=== PATIENT | female | born 1980 | race Caucasian/White ===

== ENCOUNTER → 2017-03-21 | Outpatient (CLI) | payer SELFPAY | LOC: RAD 10:36 | PROVIDERS: ATTEND Family Medicine | DX: M25.561 Pain in right knee (principal) ==

== ENCOUNTER 2018-07-17 13:00 | Outpatient (CLI) | payer MEDICARE | END 2018-07-17 13:45 | disposition home or self-care (01) | LOC: SLEEP 13:00 | PROVIDERS: ATTEND Surgery | DX: G47.10 Hypersomnia, unspecified (principal); F39 Unspecified mood [affective] disorder; E66.9 Obesity, unspecified; Z98.84 Bariatric surgery status ==

== ENCOUNTER 2020-12-24 11:32 | Emergency (ER) | payer MEDICARE ==
[~2020-12-24] VITALS: Ht 177.8 cm; Wt 102.1 kg
[2020-12-24 11:45] VITALS: BP 124/90
[2020-12-24] MEDS ORDERED: morphine INJ 10 MG/ML 1ML (SYR OR VIAL) IM STA (12:28)
[2020-12-24] MEDS ORDERED: ONDANSETRON 4 MG (ZOFRAN) ORAL DISSOLVE TAB PO STA (12:28)
--- NOTE | 2020-12-24 12:31 | Diagnostic Imaging Report ---
INDICATION: Wrist pain after a fall. 3 views were obtained FINDINGS: The alignment is normal. There is no fracture dislocation. Soft tissues are unremarkable. IMPRESSION: No acute fracture or dislocation. Dictated by: Dictated on workstation # [id number]
--- NOTE | 2020-12-24 12:32 | Diagnostic Imaging Report ---
INDICATION: Pain after a fall. 3 views were obtained. FINDINGS: The alignment is normal. There is no fracture or dislocation. Soft tissues are unremarkable. IMPRESSION: No acute fracture or dislocation. Dictated by: Dictated on workstation # [id number]
--- NOTE | 2020-12-24 12:33 | Diagnostic Imaging Report ---
INDICATION: Elbow pain. 3 views were obtained. FINDINGS: The alignment is normal. There appears to be a small joint effusion although there is no overt fracture or dislocation. Soft tissues are unremarkable. IMPRESSION: No definitive evidence of fracture or dislocation although there is a questionable joint effusion. Recommend clinical correlation and follow-up as pain dictates. Dictated by: Dictated on workstation # [id number]
--- NOTE | 2020-12-24 12:34 | Diagnostic Imaging Report ---
INDICATION: Knee pain after a fall. 3 views were obtained. FINDINGS: The alignment is normal. There is no fracture or dislocation. Soft tissues are unremarkable. Mild degenerative changes. IMPRESSION: Mild degenerative changes, otherwise unremarkable. Dictated by: Dictated on workstation # [id number]
--- NOTE | 2020-12-24 13:00 | ED General ---
General Chief Complaint: Trauma-Non Activation Stated Complaint: RIGHT HAND/RIGHT KNEE/HEAD INJ Nursing Triage Note: see triage note Nursing Sepsis Screen: No Definite Risk Source of Information: Patient History of Present Illness Date Seen by Provider: Dec 24, 2020 Time Seen by Provider: 11:15 Initial Comments Patient is a 40-year-old female with history of rheumatoid arthritis who presents from accidental fall from a treadmill. Patient slipped off the treadmill at speed fell backwards hitting her head with loss of consciousness for unknown duration who presents with headache, right arm, right wrist and right knee pain. Patient is ambulatory and has full use of her arm and wrist. There is no obvious displaced fracture. Patient believes she hit the front side of her head. There is no bruising swelling. Patient is not on anticoagulation or antiplatelet therapy. Headache is reported as moderate. Patient does report mild nausea without vomiting. She recalls the incident. Denies chest pain shortness of breath abdominal pain, hip pain or additional extremity pain. Accident occurred just prior to ED arrival. Timing/Duration: 1 Hour Severity: Moderate Modifying Factors: improves with Medication, improves with Other Associated Systoms: Other Allergies and Home Medications Allergies Coded Allergies: codeine (Verified Allergy, Unknown, 12/24/20) Patient Home Medication List Home Medication List Reviewed: Yes Review of Systems Review of Systems Constitutional: see HPI EENTM: see HPI Respiratory: see HPI Cardiovascular: see HPI Gastrointestinal: see HPI Genitourinary: see HPI Musculoskeletal: see HPI Skin: see HPI Psychiatric/Neurological: See HPI Hematologic/Lymphatic: See HPI All Other Systems Reviewed Negative Unless Noted: Yes Past Dvqilgb-Rxhlrs-Ruysrj Hx Past Med/Social Hx: Reviewed Nursing Past Med/Soc Hx Patient Social History Alcohol Use: Denies Use Smoking Status: Never a Smoker 2nd Hand Smoke Exposure: No Recent Infectious Disease Expo: No Recent Hopitalizations: No Seasonal Allergies Seasonal Allergies: No Past Medical History Surgeries: Yes Appendectomy, Eye Surgery, Gallbladder Respiratory: No Cardiac: No Neurological: No Genitourinary: No Gastrointestinal: No Musculoskeletal: Yes Rheumatoid Arthritis Endocrine: No HEENT: Yes Cataract, Glaucoma Cancer: No Psychosocial: No Integumentary: No Physical Exam Vital Signs Vital Signs - First Documented 12/24/20 11:45 Temp 36.6 Pulse 110 Resp 16 B/P (MAP) 124/90 (101) Pulse Ox 96 O2 Delivery Room Air Capillary Refill : Less Than 3 Seconds Height, Weight, BMI Height: '" Weight: lbs. oz. kg; 32.00 BMI Method: General Appearance: WD/WN Eyes: Bilateral Eye Normal Inspection, Bilateral Eye PERRL, Bilateral Eye EOMI HEENT: Normal ENT Inspection, Pharynx Normal Neck: Full Range of Motion, Non Tender, Supple Respiratory: Lungs Clear Cardiovascular: Regular Rate, Rhythm (Swelling of wrist, hand, no deformity. Abrasion over dorsum of hand. Range of motion intact. Right elbow swelling, no deformity or restriction range of motion. Right knee, no deformity swelling or bruising. 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 Norm as Tested Skin: Normal Color, Warm/Dry Progress/Results/Core Measures Suspected Sepsis Recent Fever Within 48 Hours: No Infection Criteria Present: None New/Unexplained Altered Menta: No Sepsis Screen: No Definite Risk SIRS Temperature: Pulse: 110 Respiratory Rate: 16 Blood Pressure 124 /90 Mean: 101 Results/Orders My Orders Orders - CEDRIC GARCIA DO Wrist 3 View Right (12/24/20 11:52) Hand 3 View Right (12/24/20 11:52) Elbow 3 View Right (12/24/20 11:52) Knee 3 View Right (12/24/20 11:52) Ondansetron Oral Dissolve Tab (Zofran (12/24/20 12:28) Morphine Injection (Morphine Injection (12/24/20 12:28) Nursing Communication (Order) (12/24/20 12:51) Vital Signs/I&O 12/24/20 11:45 Temp 36.6 Pulse 110 Resp 16 B/P (MAP) 124/90 (101) Pulse Ox 96 O2 Delivery Room Air Capillary Refill : Less Than 3 Seconds Blood Pressure Mean: 101 Departure Communication (Admissions) Patient with concussion with loss of consciousness. GCS 15 in the emergency department. Reports moderate headache with nausea. CT imaging indicated and declined by patient. I explained to the patient I cannot exclude a more serious head injury. Risk versus benefit versus alternatives discussed in detail. Patient verbalizes understanding and prefers supportive care with watchful waiting and agrees to return to the emergency department should her symptoms wo rsen. Typical closed head injury instructions provided. Patient placed in wrist splint and sling for comfort. All questions answered prior to departure. Impression Primary Impression: Concussion with loss of consciousness Additional Impressions: Sprain of right elbow Right wrist sprain Right knee sprain Contusion of right hand Disposition: 20 Condition: Stable Departure-Patient Inst. Decision time for Depature: 12:59 Referrals: DEXTER DAMIAN MD (PCP) Primary Care Physician Patient Instructions: Elbow Sprain (DC), Wrist Sprain (DC), Acute Pain, Adult, Knee Sprain (DC), Concussion in Adults Add. Discharge Instructions: Please wear sling and splint for comfort. Apply ice to affected areas. Take ibuprofen for pain and tramadol as needed for additional relief. Return to the emergency department if new or concerning symptoms. Otherwise follow-up with your PCP if symptoms persist in 3 to 5 days. All discharge instructions reviewed with patient and/or family. Voiced understanding. Scripts Ondansetron (Ondansetron Odt) 4 Mg Tab.rapdis 4 MG PO Q6H, #10 TAB Prov: CEDRIC GARCIA DO 12/24/20 Tramadol HCl (Tramadol HCl) 50 Mg Tablet 50 MG PO Q6H PRN for PAIN for 3 Days, #10 TAB 0 Refills Prov: CEDRIC GARCIA DO 12/24/20 CEDRIC GARCIA DO Dec 24, 2020 13:00
[2020-12-24] MEDS ORDERED: ONDA4TAB11 PO (13:01)
[2020-12-24] MEDS ORDERED: TRM50T PO (13:01)
[2020-12-24] MEDS ORDERED: FAMOTIDINE 20MG/2ML IV (PEPCID) IVP ONE (14:00)
[2020-12-24 14:02] LABS: HEMATOCRIT 42 % (35-52); HEMOGLOBIN 13.7 G/DL (11.5-16.0); MEAN CORPUSCULAR HEMOGLOBIN 28 PG (25-34); MEAN CORPUSCULAR HGB CONC 33 G/DL (32-36); MEAN CORPUSCULAR VOLUME 85 FL (80-99); WHITE BLOOD COUNT 9.3 10^3/uL (4.3-11.0)
[2020-12-24 14:03] LABS: MEAN PLATELET VOLUME 9.8 FL (7.4-10.4); PLATELET COUNT 273 10^3/uL (130-400)
[2020-12-24 14:16] LABS: BASOPHILS # (AUTO) 0.1 10^3/uL (0.0-0.1); BASOPHILS % (AUTO) 1 % (0-10); BASOPHILS % (MANUAL) 1 %; EOSINOPHILS # (AUTO) 0.2 10^3/uL (0.0-0.3); EOSINOPHILS % (AUTO) 2 % (0-10); EOSINOPHILS % (MANUAL) 2 %; LYMPHOCYTES # (AUTO) 2.6 X 10^3 (1.0-4.0); LYMPHOCYTES % (AUTO) 28 % (12-44); LYMPHOCYTES % (MANUAL) 26 %; MONOCYTES # (AUTO) 0.9 X 10^3 (0.0-1.0); MONOCYTES % (AUTO) 10 % (0-12); MONOCYTES % (MANUAL) 6 %; NEUTROPHILS # (AUTO) 5.6 X 10^3 (1.8-7.8); NEUTROPHILS % (AUTO) 60 % (42-75); NEUTROPHILS % (MANUAL) 65 %
[2020-12-24 14:17] LABS: ALANINE AMINOTRANSFERASE 19 U/L (0-55); ALBUMIN 4.2 GM/DL (3.2-4.5); ALKALINE PHOSPHATASE 79 U/L (40-136); BILIRUBIN,TOTAL 0.5 MG/DL (0.1-1.0); BUN/CREATININE RATIO 13; CALCIUM 9.4 MG/DL (8.5-10.1); CARBON DIOXIDE 21 MMOL/L (21-32); CHLORIDE 104 MMOL/L (98-107); CREATININE SERUM 0.98 MG/DL (0.60-1.30); GFR ESTIMATED > 60; GLUCOSE 110 MG/DL (70-105); LIPASE 33 U/L (8-78); POTASSIUM 3.7 MMOL/L (3.6-5.0); SODIUM 136 MMOL/L (135-145); TOTAL PROTEIN 7.3 GM/DL (6.4-8.2)
[2020-12-24] MEDS ORDERED: NS 100 ML (IVPB) BAG IV ONE (14:45)
[2020-12-24] MEDS ORDERED: HOLD METFORMIN - RECEIVED CONTRAST 20 ML VIAL IV SCH (14:45)
[2020-12-24] MEDS ORDERED: IOHEXOL 350 MG/ML 100 ML (OMNIPAQUE 350) VIAL IV ONE (14:45)
--- NOTE | 2020-12-24 14:54 | Diagnostic Imaging Report ---
PROCEDURE: CT abdomen and pelvis with contrast. TECHNIQUE: Multiple contiguous axial images were obtained through the abdomen and pelvis after administration of intravenous contrast. Auto Exposure Controls were utilized during the CT exam to meet ALARA standards for radiation dose reduction. All CT scans use one or more of the following dose optimizing techniques: automated exposure control, MA and/or KvP adjustment based on patient size and exam type or iterative reconstruction. INDICATION: Fall off treadmill with right upper quadrant pain and nausea. FINDINGS: The heart size is normal. The lung bases are clear. The liver is normal in size and without focal lesions. Gallbladder is surgically absent. There is no biliary ductal dilatation. There are postsurgical changes about the stomach. Spleen is normal. The pancreas and adrenal glands are unremarkable. Kidneys are normal in appearance. Aorta is nonaneurysmal. The bowel gas pattern is nonspecific. There is no free air. There is no ascites. There are no focal inflammatory changes. Uterus is normal. Bladder is normal. Ovaries are normal. There is no pelvic mass, adenopathy or free fluid. The alignment of the spine is normal. Vertebral body heights are well maintained. There is no spondylolysis or spondylolisthesis. IMPRESSION: No acute abnormality in the abdomen or pelvis. Dictated by: Dictated on workstation # [id number]
== END 2020-12-24 13:15 | disposition home or self-care (01) ==
LOC: EDUNIT# 11:32 → ER FS 11:34
DX: S06.0X9A Concussion with loss of consciousness of unspecified duration, initial encounter (principal); S53.401A Unspecified sprain of right elbow, initial encounter; S63.501A Unspecified sprain of right wrist, initial encounter; S83.91XA Sprain of unspecified site of right knee, initial encounter; S60.221A Contusion of right hand, initial encounter; R40.2410 Glasgow coma scale score 13-15, unspecified time; Z88.5 Allergy status to narcotic agent; W17.89XA Other fall from one level to another, initial encounter; Y93.A1 Activity, exercise machines primarily for cardiorespiratory conditioning
CPT/HCPCS: 36415; 73080; 73110; 73130; 73562; 74177; 80053; 83690; 85007; 85027

== ENCOUNTER → 2021-01-18 | Outpatient (CLI) | payer MEDICARE ==
[~2021-01-18] MED LIST: ONDA4TAB11 PO; TRM50T PO
--- NOTE | 2021-01-18 10:03 | Diagnostic Imaging Report ---
Right wrist at 906h. INDICATION: Injury with pain 4 views were obtained. There is no fracture, dislocation or acute bony abnormality evident. The radiocarpal joint is fairly well maintained. The soft tissues are unremarkable. When compared to the prior exam of 12/24/2020 there does not appear to have been any significant change. If clinical concern regarding an underlying bony injury persists, MRI would be recommended for further evaluation. IMPRESSION: There is still no evidence for an acute bony abnormality. Additional considerations as above. Dictated by: Dictated on workstation # [id number]
== END ==
LOC: RAD FS 08:52
PROVIDERS: ATTEND Nurse Practitioner
DX: S60.211A Contusion of right wrist, initial encounter (principal)
CPT/HCPCS: 73110

== ENCOUNTER 2021-02-13 05:42 | Outpatient (CLI) | payer MEDICARE ==
[~2021-02-13] VITALS: Ht 180.3 cm; Wt 110.8 kg
[2021-02-13] MEDS ORDERED: TOPI25TA10 PO (13:10)
[2021-02-13] MEDS ORDERED: ONDA4TAB11 PO (13:10)
[2021-02-13] MEDS ORDERED: BUPR200T3 PO (13:10)
[2021-02-13] MEDS ORDERED: PREG75CA75 PO ×2 (13:10)
[2021-02-13] MEDS ORDERED: MECO10005 PO (13:10)
[2021-02-13] MEDS ORDERED: FLUO40CA PO (13:10)
[2021-02-13] MEDS ORDERED: MULT-1136 PO (13:10)
== END 2021-02-13 14:07 | disposition home or self-care (01) ==
LOC: PREOP 05:42
PROVIDERS: ATTEND Obstetrics & Gynecology
DX: Z01.812 Encounter for preprocedural laboratory examination (principal); N93.9 Abnormal uterine and vaginal bleeding, unspecified

== ENCOUNTER 2021-02-20 06:05 | Day surgery (SDC) | payer MEDICARE ==
[2021-02-20] VITALS (13 sets, daily range): BP systolic 108–133; BP diastolic 58–87
[~2021-02-20] VITALS: Ht 180.3 cm; Wt 110.8 kg
[~2021-02-20 06:05] MED LIST changes: +BUPR200T3 PO; +FLUO40CA PO; +MECO10005 PO; +MULT-1136 PO; +PREG75CA75 PO; +TOPI25TA10 PO
[2021-02-20] MEDS ORDERED: ceFAZolin 2 GM IV Premixed 50 ML IV ONE (06:15)
[2021-02-20 06:25] LABS: BILIRUBIN,URINE NEGATIVE (NEGATIVE); CLARITY,URINE CLOUDY; COLOR,URINE YELLOW; GLUCOSE, URINE (UA) NEGATIVE (NEGATIVE); KETONES,URINE NEGATIVE (NEGATIVE); LEUKOCYTE ESTERASE ,URINE NEGATIVE (NEGATIVE); NITRITE,URINE NEGATIVE (NEGATIVE); PH,URINE 7.5 (5-9); PROTEIN,URINE NEGATIVE (NEGATIVE)
[2021-02-20 06:33] LABS: BACTERIA,URINE NEGATIVE /HPF
[2021-02-20 06:34] LABS: AMORPHOUS SEDIMENT,UR LARGE AMOR PHOSPHATE /LPF
[2021-02-20 06:49] LABS: BASOPHILS # (AUTO) 0.1 10^3/uL (0.0-0.1); BASOPHILS % (AUTO) 1 % (0-10); EOSINOPHILS # (AUTO) 0.2 10^3/uL (0.0-0.3); EOSINOPHILS % (AUTO) 2 % (0-10); HEMATOCRIT 41 % (35-52); HEMOGLOBIN 13.6 g/dL (11.5-16.0); LYMPHOCYTES # (AUTO) 1.7 10^3/uL (1.0-4.0); LYMPHOCYTES % (AUTO) 16 % (12-44); MEAN CORPUSCULAR HEMOGLOBIN 29 pg (25-34); MEAN CORPUSCULAR HGB CONC 34 g/dL (32-36); MEAN CORPUSCULAR VOLUME 87 fL (80-99); MEAN PLATELET VOLUME 10.4 fL (9.0-12.2); MONOCYTES # (AUTO) 0.8 10^3/uL (0.0-1.0); MONOCYTES % (AUTO) 8 % (0-12); NEUTROPHILS # (AUTO) 7.3 10^3/uL (1.8-7.8); NEUTROPHILS % (AUTO) 72 % (42-75); PLATELET COUNT 312 10^3/uL (130-400); WHITE BLOOD COUNT 10.1 10^3/uL (4.3-11.0)
[2021-02-20] MEDS ORDERED: LIDOCAINE/EPI 1%-1:100,000 (XYLOCAINE) 20ML ONE (07:01)
[2021-02-20] MEDS ORDERED: LACTATED RINGERS 1,000 ML IV PRN (07:15)
[2021-02-20] MEDS ORDERED: SCOPOLAMINE 1.5 MG (TRANSDERM-SCOP) PATCH TOP ONE (07:15)
[2021-02-20] MEDS ORDERED: MIDAZOLAM 2 MG/2 ML (VERSED) VIAL IV ONE (07:15)
[2021-02-20] MEDS ORDERED: ONDANSETRON 4 MG/2 ML (SDV) Z0FRAN IV ONE (07:15)
[2021-02-20] MEDS ORDERED: FAMOTIDINE 20MG/2ML IV (PEPCID) IV ONE (07:15)
[2021-02-20] MEDS ORDERED: SCOPOLAMINE 1.5 MG (TRANSDERM-SCOP) PATCH ONE (07:18)
[2021-02-20] MEDS ORDERED: MIDAZOLAM 2 MG/2 ML (VERSED) VIAL ONE ×2 (07:18→07:28)
[2021-02-20] MEDS ORDERED: ceFAZolin 2 GM IV Premixed 50 ML ONE (07:19)
[2021-02-20] MEDS ORDERED: ONDANSETRON 4 MG/2 ML (SDV) Z0FRAN ONE ×2 (07:19→08:30)
[2021-02-20] MEDS ORDERED: FAMOTIDINE 20MG/2ML IV (PEPCID) ONE (07:20)
[2021-02-20] MEDS ORDERED: LIDOCAINE PF 2% 5 ML (XYLOCAINE) VIAL ONE (07:27)
[2021-02-20] MEDS ORDERED: SEVOFLURANE (ULTANE) 15 ML INHAL SOLN ONE ×6 (07:27→09:16)
[2021-02-20] MEDS ORDERED: proPOfol 200 MG/20 ML (DIPRIVAN) VIAL IV ONE (07:27)
[2021-02-20] MEDS ORDERED: fentaNYL INJ 100 MCG/2 ML AMP ONE ×2 (07:28→10:02)
[2021-02-20] MEDS: LACTATED RINGERS 1,000 ML IV PRN ×2 (07:36→08:37)
--- NOTE | 2021-02-20 07:54 | Progress Note-Pre Operative ---
Pre-Operative Progress Note H&P Reviewed The H&P was reviewed, patient examined and no changes noted. Date Seen by Provider: Feb 20, 2021 Time Seen by Provider: 07:45 Date H&P Reviewed: Feb 20, 2021 Time H&P Reviewed: 07:45 Pre-Operative Diagnosis: abnormal uterine bleeding INEZ WYATT DO Feb 20, 2021 07:54
[2021-02-20] MEDS ORDERED: ROCURONIUM 10 MG/ML 5 ML SYRINGE IV ONE (08:30)
[2021-02-20] MEDS ORDERED: GLYCOPYRROLATE 0.2 MG/ML (ROBINUL) 2 ML VIAL ONE (09:13)
[2021-02-20] MEDS ORDERED: NEOSTIGMINE 3 MG/3 ML VIAL ONE (09:13)
--- NOTE | 2021-02-20 09:25 | Operative Report ---
Operative Report Date of Procedure/Surgery Feb 20, 2021 Surgeon (s) INEZ WYATT DO Tractor Expert (s): NA Post-Operative Diagnosis Same, endometriosis, right ovarian endometrioma Procedure Performed RATH, bilateral salpingectomy, Right oophorectomy Description of Procedure Anesthesia Type: General Estimated blood loss (mL): minimal Specimen(s) collected/removed uterus, bilateral tubes and ovaries Description of the Procedure Patient has had tubal ligation/salpingectomy and has had abnormal uterine bleeding that was initially controlled with conservative measures but is no longer helping. Endometriosis and fibroids noted on previous exam/laparoscopy. After informed consent was obtained, patient was taken into the operating room where general anesthetic was found to be adequate. She was prepped and draped in the usual sterile fashion in the dorsal lithotomy position. A Hendrix catheter was placed. A speculum was placed in the vagina. The cervix was visualized and the anterior lip was grasped with a sharp toothed tenaculum. The uterus was sounded and depth was approximately 12 centimeters. I placed the Ernie device (12 cm) and a 3.5 cm collar was advanced over the cervix. I inserted the Ernie without difficulty, inflating the balloon and securing it around the fornix of the cervix. The collar was then secured with sutures at 12 o'clock. Attention was then turned to the patient's abdomen. The skin was injected with lidocaine with epinephrine. A supraumbilical incision was made about 8 mm in length. A Veress needle was inserted and I confirmed intraabdominal placement with a drop in pressure and the saline drop test. The opening pressure was 7 mmHg. I then insufflated the abdomen to a maximum of 15 mmHg with warmed CO2 gas. I placed an additional 8 mm trocar in the left abdomen lateral to the umbilicus approximately 15 cm. She did have some omental adhesions, but I was able to advance the camera past these without difficulty. There was not bowel associated with the adhesion. The second robotic port was placed about 12 cm lateral to the right placement. This was an 8 mm trocar. These were placed under direct visualization of the laparoscope. lidocaine with epinephrine was injected prior to placement of all trocars. When all placements were confirmed, the patient was placed in steep Trendelenburg allowing adequate visualization and the robot was brought in for docking. The docking was accomplished without difficulty. I then took over the command of the robot utilizing the vessel sealer and monopolar kati. I was able to visualize the round ligaments bilaterally and grasped them and cauterized with bipolar cautery and then cut with my kati. At this point, I had to dissect the ovary from its adhesions. As I did this dark fluid consistent with endometrioma, spilled out. This was irrigated and suctioned. I was able to then dissect the ovary off of the uterus. I removed the portion of the ovary that contained the endometrioma. The ovary appeared otherwise normal. As the tubes had already been removed, I moved my dissection to the posterior leaves of the broad ligament. I dissected the posterior leaves of the broad ligament off the uterine arteries skeletonizing them bilaterally. I then took a second clamp with the bipolar cautery and with the kati, transected the vessels away from the lateral aspect to the cervical stroma. I dissected the anterior peritoneum off the lower uterine segment. There were extensive adhesions from the previous sections and previous surgeries. I continually pushed the bladder back and I took excessively great care and I was eventually able to dissect the vesicouterine peritoneum off the lower uterine segment. This took approximately 30-45 minutes as i took great care not to injure the bladder and cautery used sparingly. I then dissected in a V fashion towards the midline between the uterosacral ligaments. This allowed me to skeletonize the uterine vessels bilaterally. The balloon on the ERNIE was insufflated. This allowed me to see the ERNIE circumferentially. I then performed a colpotomy anteriorly and then amputate with cervix away from the vaginal fornix. I then continued the colpotomy circumferentially. I made sure to include any of the endometrial implants with the specimen. Once this was performed, the library circulation assistant removed the uterus and cystic tissue, through the vagina. She then left the a lap sponge in the vagina to maintain the pneumoperitoneum. . I then began closure of the vaginal cuff. The uterus was left in the vagina to maintain pneumoperitoneum. I closed the apices of the vaginal cuff with 2-0 Vicryl V lock sutures with a colposuspension through the uterosacral ligaments. This suspended the apices of the vaginal cuff. I extended this to the midline from both sides and overlapped the V lock sutures in the midline. Excellent closure is noted and hemostasis is achieved. All the needles were removed from the patient's abdomen. Now, the robotic instruments were removed and the robot was docked back to laparoscopy. The pelvis was irrigated. There was no active bleeding noted. Bilateral ureters were seen the entire time during the surgery and were peristalsing. There was no excessive bleeding noted. The trocars were removed under direct visualization. The laparoscopic sites were visualized and found to be hemostatic. The trocar sites were injected with 0.25% Marcaine. The skin incisions were closed with 4-0 Monocryl in a subcuticular fashion and then with Dermabond. Op sites were placed over the incision sites. The instruments were removed from the vagina and I noted there were no abrasions. Sponge, lap, needle and instrument counts correct times two. Patient was a wakened and taken to recovery in a stable condition. Findings of the Procedure Large right ovarian cyst (5x6 cm) that appeared to be hemorrhagic, or an endometrioma. evidence of endometriosis on the left ovary and in the culdesac. Uterus was slightly boggy 3.5 cm 10 cm Allergies and Home Medications Allergies Coded Allergies: Penicillins (Verified Allergy, Intermediate, Rash, 02/13/21) codeine (Verified Allergy, Unknown, 12/24/20) latex (Verified Allergy, Unknown, 02/13/21) Home Medications Bupropion HCl 200 Mg Tablet.er, 200 MG PO DAILY, (Reported) Last Action: Last Taken Edited Fluoxetine HCl 40 Mg Capsule, 40 MG PO DAILY, (Reported) Last Action: Last Taken Edited Mecobalamin 1,000 Mcg Tab.chew, 1,000 MCG PO WEEK, (Reported) Last Action: Last Taken Edited Multivitamin 1 Each Tablet, 1 EACH PO DAILY, (Reported) Last Action: Last Taken Edited Ondansetron 4 Mg Tab.rapdis, 4 MG PO Q4H PRN for NAUSEA/VOMITING-1ST LINE, (Reported) Pregabalin 75 Mg Capsule, 150 MG PO DAILY, (Reported) Last Action: Last Taken Edited Pregabalin 75 Mg Capsule, 75 MG PO HS, (Reported) Last Action: Last Taken Edited Topiramate 25 Mg Tablet, 25 MG PO BID, (Reported) Last Action: Last Taken Edited Patient Home Medication List Home Medication List Reviewed: Yes INEZ WYATT DO Feb 20, 2021 09:25
[2021-02-20] MEDS ORDERED: CHLORASEPTIC LOZENGE MM PRN (09:30)
[2021-02-20] MEDS ORDERED: SIMETHICONE 40 MG/0.6 ML (MYLICON DROPS) 30 ML BTL PO PRN (09:30)
[2021-02-20] MEDS ORDERED: morphine INJ 4 MG/ML 1 ML (VIAL/SYRINGE) IVP PRN (09:30)
[2021-02-20] MEDS ORDERED: ONDANSETRON 4 MG (ZOFRAN) ORAL DISSOLVE TAB PO PRN (09:30)
[2021-02-20] MEDS: LACTATED RINGERS 1,000 ML IV SCH ×3 (09:53→19:53)
[2021-02-20] MEDS ORDERED: PROMETHAZINE INJ 25 MG/ML (PHENERGAN) AMP IVP ONE (10:00)
[2021-02-20] MEDS ORDERED: morphine INJ 10 MG/ML 1ML (SYR OR VIAL) IVP ONE (10:00)
[2021-02-20] MEDS ORDERED: HYDROmorphone 2 MG/ML VIAL (DILAUDID) IV ONE (10:00)
[2021-02-20] MEDS: KETOROLAC 30 MG/ML VIAL IV SCH ×3 (10:12→22:21)
[2021-02-20] MEDS ORDERED: fentaNYL INJ 100 MCG/2 ML AMP IVP ONE (10:15)
[2021-02-20] MEDS ORDERED: IBUPROFEN 600 MG (MOTRIN) TAB PO SCH (12:00)
[2021-02-20] MEDS: ACETAMINOPHEN 500 MG TAB (TYLENOL) PO SCH ×2 (13:41→22:27)
[2021-02-20] MEDS ORDERED: traZODone 50 MG (DESYREL) TAB PO SCH (21:00)
[2021-02-20] MEDS: DOCUSATE SODIUM 100 MG (COLACE) CAP PO SCH (22:21)
[2021-02-21] MEDS: LACTATED RINGERS 1,000 ML IV SCH (02:41)
[2021-02-21 02:43] VITALS: BP 110/58
[2021-02-21] MEDS: ACETAMINOPHEN 500 MG TAB (TYLENOL) PO SCH ×2 (06:02→13:52)
[2021-02-21] MEDS: KETOROLAC 30 MG/ML VIAL IV SCH (06:03)
[2021-02-21 06:20] VITALS: BP_SYST 115; BP_SYST 116; BP_DIAS 60; BP_DIAS 65
[2021-02-21] MEDS ORDERED: IBUP-844 PO ×2 (09:08)
[2021-02-21] MEDS ORDERED: DCS100C PO ×2 (09:08)
[2021-02-21] MEDS ORDERED: OXC5T PO ×2 (09:08)
[2021-02-21] MEDS ORDERED: SIME80TA16 PO ×2 (09:08)
[2021-02-21] MEDS ORDERED: ACET-93 PO ×2 (09:08)
--- NOTE | 2021-02-21 09:10 | Discharge Inst-Women's Service ---
Discharge Inst-Women's Serv Depart Medication/Instructions New, Converted or Re-Newed RX: Transmitted to Pharmacy Final Diagnosis abnormal uterine bleeding endometriosis Problems Reviewed?: Yes Consults/Follow Up Additional Follow Up: Yes (1-2 weeks and then 8-10 weeks) Activity Activity: Activity as Tolerated (no lifting over 25 lbs; no swimming, no baths, etc until cleared) Driving Instructions: No Driving for 1 Week NO SMOKING: NO SMOKING Nothing Inside Vagina: No Douching, No [place], No Tampons Diet Discharge Diet: No Restrictions Symptoms to Report to : Bleeding Excessive, Pain Increased, Fever Over 101 Degrees F, Vaginal Bleeding Increase, Cramps in Feet or Legs, Vaginal Discharge Foul For Any Problems or Questions: Contact Your Physician Skin/Wound Care Infection Signs and Symptoms: Increased Redness, Foul Odor of Wound, Increased Drainage, Skin Itchy or Has a Rash, Increased Swelling, Temperature Above 101 F Operative Area Clean and Dry: Keep Incision Clean/Dry, You May Remove Bandage (on day three or if soiled or wet) Stitches/[place]/Dermabond: Dermabond Bathing Instructions: INEZ Morfin DO Feb 21, 2021 09:10
[2021-02-21] MEDS: DOCUSATE SODIUM 100 MG (COLACE) CAP PO SCH (09:44)
[2021-02-21 09:45] VITALS: BP 116/61
[2021-02-21 13:51] VITALS: BP 122/69
--- NOTE | 2021-02-21 15:41 | Anesthesia-General Post-Op ---
General Patient Condition Mental Status/LOC: Same as Preop Cardiovascular: Satisfactory Nausea/Vomiting: Absent Respiratory: Satisfactory Pain: Controlled Complications: Absent Post Op Complications Complications None Follow Up Care/Instructions Patient Instructions None needed. Anesthesia/Patient Condition Patient Condition Patient was seen this morning in post-op rounds and she was doing well, no complaints, stable vital signs, no apparent adverse anesthesia problems. DEBRA CHAMPAGNE DO Feb 21, 2021 15:41
== END 2021-02-21 14:10 | disposition home or self-care (01) ==
LOC: SDC 06:05 → WS 10:40 → SDC 02-21 14:10
PROVIDERS: ATTEND Obstetrics & Gynecology
DX: N83.11 Corpus luteum cyst of right ovary (principal); N83.8 Other noninflammatory disorders of ovary, fallopian tube and broad ligament; N80.1 Endometriosis of ovary; M06.9 Rheumatoid arthritis, unspecified; E66.9 Obesity, unspecified; Z88.5 Allergy status to narcotic agent; Z91.040 Latex allergy status; Z79.899 Other long term (current) drug therapy; Z88.0 Allergy status to penicillin; Z98.890 Other specified postprocedural states; Z80.9 Family history of malignant neoplasm, unspecified; Z87.891 Personal history of nicotine dependence; Z90.49 Acquired absence of other specified parts of digestive tract; Z68.34 Body mass index [BMI] 34.0-34.9, adult
CPT/HCPCS: 36415; 81000; 84703; 85025; 86850; 86900; 86901; 87081; 88307; 94664

== ENCOUNTER 2021-02-25 14:12 | Emergency (ER) | payer MEDICARE ==
[~2021-02-25] VITALS: Ht 177 cm; Wt 108.0 kg
[~2021-02-25 14:12] MED LIST changes: +ACET-93 PO; +DCS100C PO; +IBUP-844 PO; +OXC5T PO; +SIME80TA16 PO
[2021-02-25] MEDS ORDERED: ONDANSETRON 4 MG/2 ML (SDV) Z0FRAN IVP STA ×2 (14:28→15:36)
[2021-02-25] MEDS ORDERED: NS IV 1000 ML 1,000 ML IV STA ×2 (14:28→15:49)
--- NOTE | 2021-02-25 14:36 | ED General ---
General Chief Complaint: General Problems/Pain Stated Complaint: ABDOMINAL PAIN Source of Information: Patient, EMS, Old Records History of Present Illness Date Seen by Provider: Feb 25, 2021 Time Seen by Provider: 14:16 Initial Comments 41-year-old female presenting with EMS due to fever, chills, burning with painful urination. The symptoms started yesterday but got worse today. Her T- max was 99.9 or so yesterday per patient report. She has nausea but no vomiting. She had a bowel movement on Friday. She had a partial hysterectomy with Dr. Deanna Wyatt on February 20 at [facility] and had been doing well until yesterday. Today she was feeling dizzy and lightheaded and almost fell due to the sensation. She called to try and reach Dr. Wyatt to find out what to do and whoever she reached at [facility] advised her to call 911 and be seen. Timing/Duration: 1-2 Days Severity: Moderate Modifying Factors: worse with Movement Associated Systoms: No Chest Pain, No Cough, No Diaphoresis; Fever/Chills; No Headaches, No Loss of Appetite; Malaise, Nausea/Vomiting (Nausea but no vomiting); No Rash, No Seizure, No Shortness of Air, No Syncope; Weakness Allergies and Home Medications Allergies Coded Allergies: Penicillins (Verified Allergy, Intermediate, Rash, 02/13/21) codeine (Verified Allergy, Unknown, 12/24/20) latex (Verified Allergy, Unknown, 02/13/21) Home Medications Acetaminophen 500 Mg Tablet, 1,000 MG PO Q8HR Prescribed by: DEANNA WYATT on 02/21/21 09 Bupropion HCl 200 Mg Tablet.er, 200 MG PO DAILY, (Reported) Cephalexin 500 Mg Capsule, 500 MG PO QID Prescribed by: LORRIE BENITEZ on 02/25/21 174 Docusate Sodium 100 Mg Capsule, 100 MG PO BID Prescribed by: DEANNA WYATT on 02/21/21 0908 Fluoxetine HCl 40 Mg Capsule, 40 MG PO DAILY, (Reported) Ibuprofen 600 Mg Tablet, 600 MG PO Q6HR Prescribed by: DEANNA WYATT on 02/21/21 0908 Mecobalamin 1,000 Mcg Tab.chew, 1,000 MCG PO WEEK, (Reported) Metronidazole 500 Mg Tablet, 500 MG PO TID Prescribed by: LORRIE BENITEZ on 02/25/21 174 Multivitamin 1 Each Tablet, 1 EACH PO DAILY, (Reported) Ondansetron 4 Mg Tab.rapdis, 4 MG PO Q4H PRN for NAUSEA/VOMITING-1ST LINE, (Reported) Oxycodone Hcl 5 Mg Tab, 5 MG PO Q4HR Prescribed by: DEANNA WYATT on 02/21/21 0908 Pregabalin 75 Mg Capsule, 150 MG PO DAILY, (Reported) Pregabalin 75 Mg Capsule, 75 MG PO HS, (Reported) Simethicone 80 Mg Tab.chew, 80 MG PO Q2H Prescribed by: DEANNA WYATT on 02/21/21 0908 Topiramate 25 Mg Tablet, 25 MG PO BID, (Reported) Patient Home Medication List Home Medication List Reviewed: Yes Review of Systems Review of Systems Constitutional: see HPI, chills, fever (T-max of 99.9 or so on Friday) EENTM: no symptoms reported Respiratory: no symptoms reported Cardiovascular: no symptoms reported Gastrointestinal: nausea; No vomiting; other (Pelvic pain and suprapubic pain) Genitourinary: dysuria, pain Musculoskeletal: muscle pain (Generalized muscle aches) Skin: No change in color (Incision sites on her abdomen appear to be healing without redness or drainage) Psychiatric/Neurological: Anxiety Hematologic/Lymphatic: Denies Blood Clots Past Earcrpn-Fiuhav-Swlnum Hx Past Med/Social Hx: Reviewed Nursing Past Med/Soc Hx Patient Social History Alcohol Use: Denies Use Smoking Status: Never a Smoker 2nd Hand Smoke Exposure: No Recent Hopitalizations: No Substance type: Methamphetamine Seasonal Allergies Seasonal Allergies: No Past Medical History Surgeries: Yes (WISDOM TEETH) Adenoidectomy, Appendectomy, Gallbladder, Hysterectomy, Tonsillectomy Respiratory: No Cardiac: No Neurological: Yes Headaches /Migraines Female Reproductive Disorders: Polycystic Ovarian Dis Genitourinary: No Gastrointestinal: No Musculoskeletal: Yes Rheumatoid Arthritis Endocrine: No HEENT: Yes (WEARS GLASSES) Cataract, Glaucoma Cancer: No Psychosocial: Yes Anxiety, Depression Integumentary: Yes Psoriasis Blood Disorders: No Physical Exam Vital Signs Vital Signs - First Documented 02/25/21 14:15 Temp 37.4 Pulse 100 Resp 16 B/P (MAP) 140/85 (103) Pulse Ox 97 O2 Delivery Room Air Capillary Refill : Height, Weight, BMI Height: '" Weight: lbs. oz. kg; 34.08 BMI Method: General Appearance: Moderate Distress (Patient is tearful and holding her hand on her groin), Obese HEENT: PERRL/EOMI, Pharynx Normal Neck: Full Range of Motion, Normal Inspection, Supple Respiratory: Chest Non Tender, Lungs Clear, Normal Breath Sounds Cardiovascular: Normal Peripheral Pulses, Tachycardia Gastrointestinal: Normal Bowel Sounds, No Pulsatile Mass, Soft; No Distended, No Guarding, No Rebound; Tenderness (Mild tenderness around the incision sites from her laparoscopy) Rectal: Deferred Extremity: Normal Capillary Refill, Normal Inspection, Normal Range of Motion, Non Tender, No Pedal Edema Neurologic/Psychiatric: Alert, Oriented x3, 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 Norm as Tested Skin: Normal Color, Warm/Dry Focused Exam Lactate Level 02/25/21 14:20: Lactic Acid Level 0.90 Lactic Acid Level Laboratory Tests Test 02/25/21 14:20 Lactic Acid Level 0.90 MMOL/L (0.50-2.00) Progress/Results/Core Measures Suspected Sepsis SIRS Temperature: Pulse: Respiratory Rate: Laboratory Tests 02/25/21 14:20: White Blood Count 13.7H Blood Pressure / Mean: 02/25/21 14:20: Lactic Acid Level 0.90 Laboratory Tests 02/25/21 14:20: Creatinine 0.89, Platelet Count 339, Total Bilirubin 0.4 Results/Orders Lab Results Laboratory Tests Test 02/25/21 14:20 02/25/21 14:40 Range/Units White Blood Count 13.7 H 4.3-11.0 10^3/uL Red Blood Count 4.29 L 4.35-5.85 10^6/uL Hemoglobin 12.5 11.5-16.0 G/DL Hematocrit 38 35-52 % Mean Corpuscular Volume 88 80-99 FL Mean Corpuscular Hemoglobin 29 25-34 PG Mean Corpuscular Hemoglobin Concent 33 32-36 G/DL Red Cell Distribution Width 15.4 H 10.0-14.5 % Platelet Count 339 130-400 10^3/uL Mean Platelet Volume 9.8 7.4-10.4 FL Immature Granulocyte % (Auto) 1 % Neutrophils (%) (Auto) 74 42-75 % Lymphocytes (%) (Auto) 14 12-44 % Monocytes (%) (Auto) 8 0-12 % Eosinophils (%) (Auto) 3 0-10 % Basophils (%) (Auto) 0 0-10 % Neutrophils # (Auto) 10.2 H 1.8-7.8 X 10^3 Lymphocytes # (Auto) 1.9 1.0-4.0 X 10^3 Monocytes # (Auto) 1.1 H 0.0-1.0 X 10^3 Eosinophils # (Auto) 0.5 H 0.0-0.3 10^3/uL Basophils # (Auto) 0.1 0.0-0.1 10^3/uL Immature Granulocyte # (Auto) 0.1 0.0-0.1 10^3/uL Sodium Level 135 135-145 MMOL/L Potassium Level 4.3 3.6-5.0 MMOL/L Chloride Level 101 98-107 MMOL/L Carbon Dioxide Level 22 21-32 MMOL/L Anion Gap 12 5-14 MMOL/L Blood Urea Nitrogen 9 7-18 MG/DL Creatinine 0.89 0.60-1.30 MG/DL Estimat Glomerular Filtration Rate > 60 BUN/Creatinine Ratio 10 Glucose Level 124 H 70-105 MG/DL Lactic Acid Level 0.90 0.50-2.00 MMOL/L Calcium Level 9.0 8.5-10.1 MG/DL Corrected Calcium 9.3 8.5-10.1 MG/DL Total Bilirubin 0.4 0.1-1.0 MG/DL Aspartate Amino Transf (AST/SGOT) 13 5-34 U/L Alanine Aminotransferase (ALT/SGPT) 25 0-55 U/L Alkaline Phosphatase 120 40-136 U/L C-Reactive Protein 8.83 H <0.50 MG/DL Total Protein 7.4 6.4-8.2 GM/DL Albumin 3.6 3.2-4.5 GM/DL Urine Color YELLOW Urine Clarity CLEAR Urine pH 7.0 5-9 Urine Specific Dexter 1.010 L 1.016-1.022 Urine Protein NEGATIVE NEGATIVE Urine Glucose (UA) NEGATIVE NEGATIVE Urine Ketones NEGATIVE NEGATIVE Urine Nitrite NEGATIVE NEGATIVE Urine Bilirubin NEGATIVE NEGATIVE Urine Urobilinogen 0.2 < = 1.0 MG/DL Urine Leukocyte Esterase NEGATIVE NEGATIVE Urine RBC (Auto) NEGATIVE NEGATIVE Urine RBC NONE /HPF Urine WBC 0-2 /HPF Urine Crystals NONE /LPF Urine Leucine Crystals /LPF Urine Bacteria TRACE /HPF Urine Casts NONE /LPF Urine Mucus NEGATIVE /LPF Urine Culture Indicated NO My Orders Orders - LORRIE BENITEZ MD Cbc With Automated Diff (02/25/21 14:27) Comprehensive Metabolic Panel (02/25/21 14:27) Blood Culture (02/25/21 14:27) Ua Culture If Indicated (02/25/21 14:27) Chest 1 View Ap/Pa Only (02/25/21 14:27) Ed Iv/Invasive Line Start (02/25/21 14:27) Crp Fs (02/25/21 14:27) Lactic Acid Analyzer (02/25/21 14:27) Straight Cath For Spec.-Adult (02/25/21 14:27) Ns Iv 1000 Ml (Sodium Chloride 0.9%) (02/25/21 14:28) Ondansetron Injection (Zofran Injectio (02/25/21 14:28) Ct Abdomen/Pelvis W (02/25/21 14:28) Iohexol Injection (Omnipaque 350 Mg/Ml 1 (02/25/21 14:45) Received Contrast (Hold Metformin- Contr (02/25/21 14:45) Sodium Chloride Flush (Catheter Flush Sy (02/25/21 14:45) Ns (Ivpb) (Sodium Chloride 0.9% Ivpb Bag (02/25/21 14:45) Fentanyl Inj (Sublimaze Injection) (02/25/21 15:36) Ondansetron Injection (Zofran Injectio (02/25/21 15:36) Metronidazole 500mg/100ml Ivpb (Flagyl 5 (02/25/21 15:49) Ceftriaxone For Iv Use (Rocephin For I (02/25/21 15:49) Ketorolac Injection (Toradol Injection) (02/25/21 15:49) Ns Iv 1000 Ml (Sodium Chloride 0.9%) (02/25/21 15:49) Medications Given in ED Current Medications Medications Dose Ordered Sig/Araceli Route Start Time Stop Time Status Last Admin Dose Admin Iohexol 100 ml ONCE ONCE IV 02/25/21 14:45 02/25/21 14:46 DC 02/25/21 14:58 100 ML Sodium Chloride 10 ml NEEDED PRN IV 02/25/21 14:45 02/25/21 17:51 DC 02/25/21 14:58 10 ML Sodium Chloride 100 ml ONCE ONCE IV 02/25/21 14:45 02/25/21 14:46 DC 02/25/21 14:58 80 ML Vital Signs/I&O 02/25/21 02/25/21 14:15 17:32 Temp 37.4 36.8 Pulse 100 72 Resp 16 18 B/P (MAP) 140/85 (103) 105/74 Pulse Ox 97 99 O2 Delivery Room Air Room Air Capillary Refill : Progress Note #1: Progress Note Check basic labs as well as blood cultures and lactic acid. Give IV fluids for hydration, Zofran for nausea. Check CT scan of the abdomen pelvis to evaluate for possible abscess or fluid collection beyond what would be expected few days after surgery. Cath UA to look for UTI with her complaint of burning and severe pain with urination. Differential diagnosis includes sepsis with UTI, anemia and dehydration, pneumonia, cellulitis, postoperative abscess Progress Note #2: Time: 15:25 Progress Note lab shows mild elevation of WBC count to 12.7. Normal lactic acid but CRP is elevated. CXR clear of acute process. UA does not show infection. CT scan shows some inflammatory stranding in the surgical bed but no discrete fluid collection for abscess. Will see how pt is feeling and check with specimen accessioner provider for Dr. Wyatt and see how they want to proceed. Progress Note #3: Time: 15:40 Progress Note When checking on patient and updating her about results so far she reports that her pain is coming back and is up to 7 out of 10. She has more of the d louie/light headed sensation. Will repeat pain medicine and give Fentanyl 50 mcg, Zofran 4 mg for nausea from her dizziness. Repeat IVF bolus. D/w Dr. Wyatt and since no definite infection but pt having near syncope and feeling bad will try giving her IV Rocephin and Flagyl here then see if she is feeling better where she could go home and continue on antibiotics. The antibiotics would be for treating possible vaginal cuff abscess/infection. Toradol for pain as well. Placed these orders and updated pt. Will see how she is doing after meds. If she is not doing better or can not go home can check with Dr. Wyatt about observation admit for IV antibiotics and fluids with pain control. Progress Note #4: Progress Note On recheck after antibiotics pt was feeling better. She still had some dizziness but was improved. Pain improved with medicine. When asked if she felt like she could go home she felt that she could manage at home and did not feel there was anything else to be done in the hospital. Counseled to take antibiotics and pain medicine as prescribed. Follow-up with Dr. Deanna Wyatt for continued concerns as scheduled on the or sooner if worsening issues Diagnostic Imaging Diagonstic Imaging: CT Plain Films/CT/US/NM/MRI: abdomen, pelvis Comments [facility] [place], [place] NAME: KONRAD SANCHEZ [facility] REC#: [id number] PT STATUS: REG ER : 1980 PHYSICIAN: LORRIE BENITEZ MD ADMIT DATE: 02/25/21/ER FS Draft Date of Exam:02/25/21 CT ABDOMEN/PELVIS W PROCEDURE: CT abdomen and pelvis with contrast. TECHNIQUE: Multiple contiguous axial images were obtained through the abdomen and pelvis after administration of intravenous contrast. Auto Exposure Controls were utilized during the CT exam to meet ALARA standards for radiation dose reduction. All CT scans use one or more of the following dose optimizing techniques: automated exposure control, MA and/or KvP adjustment based on patient size and exam type or iterative reconstruction. INDICATION: Fever, chills, pain. COMPARISON: 12/24/2020. FINDINGS: Minimal bibasilar atelectasis. Cholecystectomy. Tiny subcentimeter hypodensity within the peripheral aspect of the right hepatic lobe is again identified and unchanged from the prior examination. The liver is otherwise unremarkable. The spleen is unremarkable. The adrenal glands are unremarkable. Splenule is present. The pancreas is unremarkable. The kidneys and bilateral ureters are unremarkable. No aneurysmal dilatation of the abdominal aorta with minimal vascular calcifications present. The uterus is nonvisualized, recently surgically removed. Inflammatory stranding is noted within the lower pelvis, particularly within the surgical bed. There is, however, no discrete drainable focal fluid collection. Tiny locule of gas noted within the anterior right pelvis. The urinary bladder is grossly unremarkable. No evidence of acute appendicitis. No bowel obstruction or pneumatosis. Small amount of free fluid within the lower pelvis. No significant adenopathy or free air. No acute osseous abnormality. IMPRESSION: 1. Recent postsurgical changes of a hysterectomy with mild inflammatory stranding and tiny amount of free fluid within the lower pelvis without discrete drainable focal fluid collection. 2. No evidence of bowel obstruction. 3. Cholecystectomy, hysterectomy and probable appendectomy. 4. Tiny locule of gas within the anterior right pelvis, felt to simply be postsurgical in nature given recent hysterectomy. Dictated on workstation # [id number] Dict: 02/25/21 1509 Trans: 02/25/[address] [facility] [id number] Interpreted by: MARTINE ENG MD Electronically signed by: Reviewed: Reviewed by Me Diagonstic Imaging: Xray Plain Films/CT/US/NM/MRI: chest Comments NAME: KONRAD SANCHEZ [facility] REC#: [id number] PT STATUS: REG ER : 1980 PHYSICIAN: LORRIE BENITEZ MD ADMIT DATE: 02/25/21/ER FS Draft Date of Exam:02/25/21 CHEST 1 VIEW AP/PA ONLY INDICATION: Fever, chills. COMPARISON: 11/26/2011 TECHNIQUE: Single radiograph of the chest dated February 25, 2021. FINDINGS: The cardiac silhouette is mildly prominent, though likely accentuated by patient body habitus. This appears relatively similar to the prior examination. No significant pulmonary vascular congestion. The lungs are clear of focal pulmonary opacity. No pleural effusion. No pneumothorax. No acute osseous abnormality. IMPRESSION: No acute cardiopulmonary abnormality. Dictated on workstation # [id number] Dict: 02/25/21 1508 Trans: 02/25/[address] [facility] [id number] Interpreted by: MARTINE ENG MD Electronically signed by: Reviewed: Reviewed by Me Departure Impression Primary Impression: Near syncope Additional Impression: Suprapubic pain, acute Disposition: 01 HOME, SELF-CARE Condition: Stable Departure-Patient Inst. Decision time for Depature: 17:45 Referrals: DEANNA WYATT CHARLES J MD (PCP) Primary Care Physician Patient Instructions: Hysterectomy, Abdominal or Laparoscopic Surgery, Near Fainting (DC) Add. Discharge Instructions: Make sure to stay hydrated and take it easy. Use your medicine as prescribed by Dr. Wyatt. Take antibiotic to help treat for possible infection that might be making your pelvic pain worse and making you dizzy and nearly faint. Call Dr. Wyatt for follow up and be seen sooner if having more problems or not improving before your appointment on March 01. All discharge instructions reviewed with patient and/or family. Voiced understanding. Scripts Cephalexin (Cephalexin) 500 Mg Capsule 500 MG PO QID for pelvic infection for 7 Days, #28 CAP 0 Refills Prov: LORRIE BENITEZ MD 02/25/21 Metronidazole (Metronidazole) 500 Mg Tablet 500 MG PO TID for pelvic infection for 7 Days, #21 TAB 0 Refills Prov: LORRIE BENITEZ MD 02/25/21 Images Torso/Trunk 1 - Ecchymosis (Healing wounds from laparoscopic surgery), Tenderness (Tenderness to the suprapubic area without rebound or guarding.) LORRIE BENITEZ MD Feb 25, 2021 14:36
[2021-02-25 14:43] LABS: HEMATOCRIT 38 % (35-52); HEMOGLOBIN 12.5 G/DL (11.5-16.0); MEAN CORPUSCULAR HEMOGLOBIN 29 PG (25-34); MEAN CORPUSCULAR HGB CONC 33 G/DL (32-36); MEAN CORPUSCULAR VOLUME 88 FL (80-99); MEAN PLATELET VOLUME 9.8 FL (7.4-10.4); PLATELET COUNT 339 10^3/uL (130-400); WHITE BLOOD COUNT 13.7 10^3/uL (4.3-11.0)
[2021-02-25 14:44] LABS: BASOPHILS # (AUTO) 0.1 10^3/uL (0.0-0.1); BASOPHILS % (AUTO) 0 % (0-10); EOSINOPHILS # (AUTO) 0.5 10^3/uL (0.0-0.3); EOSINOPHILS % (AUTO) 3 % (0-10); LYMPHOCYTES # (AUTO) 1.9 X 10^3 (1.0-4.0); LYMPHOCYTES % (AUTO) 14 % (12-44); MONOCYTES # (AUTO) 1.1 X 10^3 (0.0-1.0); MONOCYTES % (AUTO) 8 % (0-12); NEUTROPHILS # (AUTO) 10.2 X 10^3 (1.8-7.8); NEUTROPHILS % (AUTO) 74 % (42-75)
[2021-02-25] MEDS ORDERED: IOHEXOL 350 MG/ML 100 ML (OMNIPAQUE 350) VIAL IV ONE (14:45)
[2021-02-25] MEDS ORDERED: NS 100 ML (IVPB) BAG IV ONE (14:45)
[2021-02-25] MEDS ORDERED: HOLD METFORMIN - RECEIVED CONTRAST 20 ML VIAL IV SCH (14:45)
[2021-02-25] MEDS ORDERED: CATHETER FLUSH 10 ML SYR IV PRN (14:45)
[2021-02-25 14:50] LABS: BILIRUBIN,URINE NEGATIVE (NEGATIVE); CLARITY,URINE CLEAR; COLOR,URINE YELLOW; GLUCOSE, URINE (UA) NEGATIVE (NEGATIVE); KETONES,URINE NEGATIVE (NEGATIVE); LEUKOCYTE ESTERASE ,URINE NEGATIVE (NEGATIVE); NITRITE,URINE NEGATIVE (NEGATIVE); PROTEIN,URINE NEGATIVE (NEGATIVE); WBC,URINE 0-2 /HPF
[2021-02-25 14:51] LABS: BACTERIA,URINE TRACE /HPF
[2021-02-25 14:59] LABS: ALANINE AMINOTRANSFERASE 25 U/L (0-55); ALBUMIN 3.6 GM/DL (3.2-4.5); ALKALINE PHOSPHATASE 120 U/L (40-136); BILIRUBIN,TOTAL 0.4 MG/DL (0.1-1.0); BUN/CREATININE RATIO 10; CARBON DIOXIDE 22 MMOL/L (21-32); CHLORIDE 101 MMOL/L (98-107); CREATININE SERUM 0.89 MG/DL (0.60-1.30); GFR ESTIMATED > 60; GLUCOSE 124 MG/DL (70-105); POTASSIUM 4.3 MMOL/L (3.6-5.0); SODIUM 135 MMOL/L (135-145); TOTAL PROTEIN 7.4 GM/DL (6.4-8.2)
--- NOTE | 2021-02-25 15:12 | Diagnostic Imaging Report ---
INDICATION: Fever, chills. COMPARISON: 11/26/2011 TECHNIQUE: Single radiograph of the chest dated February 25, 2021. FINDINGS: The cardiac silhouette is mildly prominent, though likely accentuated by patient body habitus. This appears relatively similar to the prior examination. No significant pulmonary vascular congestion. The lungs are clear of focal pulmonary opacity. No pleural effusion. No pneumothorax. No acute osseous abnormality. IMPRESSION: No acute cardiopulmonary abnormality. Dictated by: Dictated on workstation # [id number]
--- NOTE | 2021-02-25 15:21 | Diagnostic Imaging Report ---
PROCEDURE: CT abdomen and pelvis with contrast. TECHNIQUE: Multiple contiguous axial images were obtained through the abdomen and pelvis after administration of intravenous contrast. Auto Exposure Controls were utilized during the CT exam to meet ALARA standards for radiation dose reduction. All CT scans use one or more of the following dose optimizing techniques: automated exposure control, MA and/or KvP adjustment based on patient size and exam type or iterative reconstruction. INDICATION: Fever, chills, pain. COMPARISON: 12/24/2020. FINDINGS: Minimal bibasilar atelectasis. Cholecystectomy. Tiny subcentimeter hypodensity within the peripheral aspect of the right hepatic lobe is again identified and unchanged from the prior examination. The liver is otherwise unremarkable. The spleen is unremarkable. The adrenal glands are unremarkable. Splenule is present. The pancreas is unremarkable. The kidneys and bilateral ureters are unremarkable. No aneurysmal dilatation of the abdominal aorta with minimal vascular calcifications present. The uterus is nonvisualized, recently surgically removed. Inflammatory stranding is noted within the lower pelvis, particularly within the surgical bed. There is, however, no discrete drainable focal fluid collection. Tiny locule of gas noted within the anterior right pelvis. The urinary bladder is grossly unremarkable. No evidence of acute appendicitis. No bowel obstruction or pneumatosis. Small amount of free fluid within the lower pelvis. No significant adenopathy or free air. No acute osseous abnormality. IMPRESSION: 1. Recent postsurgical changes of a hysterectomy with mild inflammatory stranding and tiny amount of free fluid within the lower pelvis without discrete drainable focal fluid collection. 2. No evidence of bowel obstruction. 3. Cholecystectomy, hysterectomy and probable appendectomy. 4. Tiny locule of gas within the anterior right pelvis, felt to simply be postsurgical in nature given recent hysterectomy. Dictated by: Dictated on workstation # [id number]
[2021-02-25] MEDS ORDERED: fentaNYL INJ 100 MCG/2 ML AMP IVP STA (15:36)
[2021-02-25] MEDS ORDERED: KETOROLAC 30 MG/ML VIAL IVP STA (15:49)
[2021-02-25] MEDS ORDERED: cefTRIAXone FOR IV USE 1,000 MG in WATER (STERILE) FOR INJECTION 10 ML IV STA (15:49)
[2021-02-25] MEDS ORDERED: metroNIDAZOLE 500MG/100ML IVPB 100 ML IV STA (15:49)
[2021-02-25 17:32] VITALS: BP 105/74
[2021-02-25] MEDS ORDERED: CEPH500C PO (17:49)
[2021-02-25] MEDS ORDERED: METR-145 PO (17:49)
== END 2021-02-25 17:51 | disposition home or self-care (01) ==
LOC: EDUNIT# 14:12 → ER FS 14:16
DX: R55 Syncope and collapse (principal); R10.30 Lower abdominal pain, unspecified; E66.9 Obesity, unspecified; F32.9 Major depressive disorder, single episode, unspecified; F41.9 Anxiety disorder, unspecified; Z68.34 Body mass index [BMI] 34.0-34.9, adult; Z88.0 Allergy status to penicillin; Z88.5 Allergy status to narcotic agent; Z91.040 Latex allergy status; Z79.899 Other long term (current) drug therapy
CPT/HCPCS: 36415; 51701; 71045; 74177; 80053; 81000; 83605; 85025; 86141; 87040

== ENCOUNTER → 2021-06-13 | Outpatient (CLI) | payer MEDICARE ==
[~2021-06-13] MED LIST changes: +CEPH500C PO; +METR-145 PO
--- NOTE | 2021-06-13 10:07 | Diagnostic Imaging Report ---
INDICATION: Left hip pain. COMPARISON: None. FINDINGS: Two views of the left hip were obtained and show no fractures, dislocations, or other acute bony abnormalities. Joint spaces are well maintained throughout. The soft tissues appear unremarkable. No radiopaque foreign bodies are identified. IMPRESSION: Unremarkable radiographic exam of the left hip. Dictated by: Dictated on workstation # [id number]
== END ==
LOC: RAD FS 09:28
PROVIDERS: ATTEND Nurse Practitioner
DX: M25.552 Pain in left hip (principal)
CPT/HCPCS: 73502